=== PATIENT | male | born 1975 | race Caucasian/White ===

== ENCOUNTER 2021-08-26 14:09 | Emergency (ER) | payer MEDICAID, SELFPAY ==
--- NOTE | 2021-08-26 14:15 | DI.RAD_ITS ---
Exam(s) XR FOOT LT COMPLETE EXAM: XR FOOT LT COMPLETE CLINICAL HISTORY: fall injury. TECHNIQUE: 2D digital imaging was performed. Three views. COMPARISON: No exams were available for comparison FINDINGS: BONES: No acute fracture is present. No bony destructive lesion is seen. JOINTS: No dislocation present. SOFT TISSUE: Normal. IMPRESSION: Unremarkable radiographs of the left foot. DATA REPOSITORY: RADIATION DOSE DELIVERED:
[2021-08-26 14:17] VITALS: BP 117/74; PULSE 129; RESP 18; O2SAT 97
--- NOTE | 2021-08-26 15:09 | W.ED.GENAD ---
Discharge Plan Disposition Patient Disposition: HOME Condition: Stable Discharge Details Clinical Impression: Injury of foot, left Primary Care Provider: Cristin Martinez ED Provider: Ever Gaitan Home Meds and New Rx's Prescriptions: Continued buspirone 10 mg Tablet 10 mg PO BID gabapentin 300 mg Capsule 300 mg PO TID sertraline 25 mg Tablet 25 mg PO DAILY lisinopril 40 mg Tablet 40 mg PO DAILY Discharge Instructions Instructions: Foot Sprain (ED) Additional Instructions: Chest x-ray unremarkable. A tall walking boot has been placed. Wear boot as needed, advance activity as tolerated. Rest, elevate, cool compresses every 2 hours for 20 minutes. [id number] Tylenol and/or Motrin as directed for discomfort. Please watch for new or worsening symptoms and return to the ER for any concerns Discharge Data Discharge Date/Time-TO BE ENTERED AT DEPARTURE: 08/26/21 15:43 Medical Decision Making 46-year-old gentleman who had a mechanical slip and fall 2 days ago presents for continuation of pain and swelling along the lateral aspect of his left foot. Denies any other injury, numbness, tingling, weakness. Ankles unremarkable. Examination most concerning for Sanchez fracture versus sprain. Will obtain x-ray and reassess X-ray of foot is unremarkable. Discussed x-ray findings with patient and disposition. Patient placed into a tall walking boot. Patient tolerated tall walking boot well, declined additional intervention such as crutches. Discussed conservative measures for foot sprain treatment. Standard discharge and return precautions were provided. Patient understands, is agreeable to this plan, and has no additional questions or concerns upon discharge. This documentation was generated using [employer] system, please disregard any oddities of phrase or misspellings. Imaging Data Radiologic Study: Attestation: I personally reviewed and interpreted this imaging study as follows: Imaging: X-Ray Radiologist's impression: Exam(s) XR FOOT LT COMPLETE EXAM: XR FOOT LT COMPLETE CLINICAL HISTORY: fall injury. TECHNIQUE: 2D digital imaging was performed. Three views. COMPARISON: No exams were available for comparison FINDINGS: BONES: No acute fracture is present. No bony destructive lesion is seen. JOINTS: No dislocation present. SOFT TISSUE: Normal. IMPRESSION: Unremarkable radiographs of the left foot. HPI General Mode of arrival: ambulatory. Date/Time Provider Initiated Documentation: 08/26/21 14:24. Limitations to Documentation: no limitations. Information obtained by: patient. History of Present Illness 46 year old M presents to the emergency department with the chief complaint of left foot injury, described as moderate, with intensity rated at 5. Quality is described as aching, and is localized to the left and lower extremity. Patient reports no radiation. Patient started experiencing this day(s) (2) and it has been constant. Immobilization improves symptom(s), Movement worsens symptoms . Patient notes no other symptoms.. Patient did receive the following treatments prior to arrival, none Related Data Home Medications Medication Instructions Recorded Confirmed buspirone 10 mg tablet 10 mg PO BID 08/26/21 08/26/21 gabapentin 300 mg capsule 300 mg PO TID 08/26/21 08/26/21 lisinopril 40 mg tablet 40 mg PO DAILY 08/26/21 08/26/21 sertraline 25 mg tablet 25 mg PO DAILY 08/26/21 08/26/21 Allergies Allergy/AdvReac Type Severity Reaction Status Date / Time meperidine [From Demerol] Allergy Anaphylaxis Unverified 08/26/21 14:21 tramadol Allergy Nausea Unverified 08/26/21 14:21 General Stated Complaint: Orthopedic JOANN: 4 Review of Systems Constitutional Constitutional: Denies weakness Musculoskeletal Musculoskeletal: Denies deformity, Denies numbness, Reports stiffness and Denies tingling Integumentary/Breasts Skin/Breast: Denies rash Neurologic Neurologic: Denies numbness, Denies tingling and Denies weakness PFSH All Active Problems (Updated 08/26/21 @ 15:27 by ANGELA Pendleton) Injury of foot, left (Acute) Social History Smoking/Tobacco Use Status: Current every day Smoking risk assessment performed?: Yes Exam Const General: cooperative, healthy appearing, comfortable and no acute distress Orientation: alert and awake HENNJ Head: normal to inspection, normocephalic and atraumatic Eyes Conjunctivae: conjunctivae normal Neck Neck: normal visual inspection, trachea midline and supple Resp Effort & Inspection: normal respiratory effort and able to speak in complete sentences Cardio Rate: regular rate Rhythm: regular rhythm Skin General skin exam: no rashes or lesions noted Neuro General: patient alert, patient awake, moves all extremities and no focal motor deficits Cognition: normal cognition Speech: speech normal Gait: antalgic Motor: muscle tone normal throughout Sensory Exam: no sensory deficits noted Extrem General: full ROM, capillary refill normal, no pedal edema and no calf tenderness Ankle/foot/toe images: 1. Diffuse mild discomfort, ecchymosis, swelling. Skin intact. Neuro, vascular, tendon intact. Ankles unremarkable. Psych Appearance: grossly normal Mental Status: mental status grossly normal Course Vital Signs Vital signs: Vital Signs Pulse 129 H 08/26/21 14:17 Respiratory Rate 18 08/26/21 14:17 Blood Pressure 117/74 08/26/21 14:17 Pulse Oximetry 97 08/26/21 14:17 Pulse 129 H 08/26/21 14:17 Respiratory Rate 18 08/26/21 14:17 Respiratory Effort 08/26/21 14:29 Blood Pressure 117/74 08/26/21 14:17 Blood Pressure Position Sitting 08/26/21 14:17 Pulse Oximetry 97 08/26/21 14:17 Oxygen Delivery Method Room Air 08/26/21 14:17 Oxygen Flow Rate 0 08/26/21 14:17 Pain Level 6 08/26/21 14:17
== END 2021-08-26 15:43 | disposition home or self-care (01) ==
PROVIDERS: Emergency Provider Physician Assistant; PCP Nurse Practitioner Family
DX: S99.822A Other specified injuries of left foot, initial encounter (principal); W01.0XXA Fall on same level from slipping, tripping and stumbling without subsequent striking against object, initial encounter
CPT/HCPCS: 29515; 99283; 73630